=== PATIENT | female | born 1940 | race Caucasian/White ===

== ENCOUNTER 2017-11-22 09:34 | Emergency (ER) | payer MEDICARE ==
[2017-11-22] MEDS ORDERED: methylPREDNISolone Sod Succ/PF 125 MG/2 ML VIAL ONE (10:35)
[2017-11-22] MEDS ORDERED: Water For Inject, Bacteriostat 30 ML ONE (10:35)
--- NOTE | 2017-11-22 12:26 | RAD ---
2 VIEWS LEFT HIP: Date: 11/22/17 COMPARISON: None. HISTORY: Left hip and knee pain which began on Friday, no history of injury. FINDINGS: No fracture or evidence of dislocation. IMPRESSION: No acute findings. POS: BERNY
--- NOTE | 2017-11-22 12:28 | RAD ---
4 VIEWS LEFT KNEE: Date: 11/22/17 COMPARISON: None. HISTORY: Knee pain since Friday, no history of injury. FINDINGS: There is mild medial compartment narrowing with associated osteophyte formation of the medial femoral condyle and medial tibial plateau. No fracture or evidence of dislocation. No knee joint effusion. M ild patellofemoral joint space narrowing. IMPRESSION: Osteoarthritic changes with no acute fracture or dislocation. POS: RASHAUN
== END 2017-11-22 11:59 | disposition home or self-care (01) ==
LOC: ERS 09:34
DX: M25.562 Pain in left knee (principal); M25.552 Pain in left hip; E78.5 Hyperlipidemia, unspecified; I10 Essential (primary) hypertension; M19.90 Unspecified osteoarthritis, unspecified site; Z79.899 Other long term (current) drug therapy
CPT/HCPCS: 96372; J2930

== ENCOUNTER 2018-06-05 15:06 | Outpatient (CLI) | payer MEDICARE | END 2018-06-05 15:07 | disposition home or self-care (01) | LOC: BICMAMMO 15:06 | PROVIDERS: ATTEND Family Medicine | DX: Z12.31 Encounter for screening mammogram for malignant neoplasm of breast (principal) | CPT/HCPCS: 77063; 77067 ==

== ENCOUNTER 2019-09-15 19:52 | Inpatient (IN) | payer MEDICARE ==
[~2019-09-15 19:52] MED LIST: Iopamidol-370 76% 500 ML 1 ML ONE
[2019-09-15 20:22] LABS: #Eosinphils 0.3 thou/uL (0.0-0.7); #Lymphocytes 0.8 thou/uL (1.20-3.40); #Monocytes 0.8 thou/uL (0.11-0.59); #Neutrophils 11.6 thou/uL (1.40-6.50); %Basophils 0.2 % (0.0-1.0); %Eosinophils 1.9 % (0.0-10.0); %Lymphocytes 5.8 % (21.0-51.0); %Monocytes 6.1 % (0.0-10.0); Hemoglobin 10.3 g/dL (12.0-16.0); Mean Corpuscular HGB CONC 33.1 g/dL (32.0-36.0); Mean Corpuscular Hemoglobin 32.9 pg (27.0-31.0); Mean Corpuscular Volume 99.3 fL (78.0-98.0); Mean Platelet Volume 6.1 fL (7.4-10.4); Platelet Count 319 thou/uL (130-400); RBC Distribution Width 13.8 % (11.5-14.5); Red Blood Cell (RBC) Count 3.12 mill/uL (4.20-5.40); White Blood Cell (WBC) Count 13.5 thou/uL (4.8-10.8)
[2019-09-15] MEDS ORDERED: Piperacillin/Tazobactam 4.5 GM VIAL ONE (20:25)
--- NOTE | 2019-09-15 20:32 | RAD ---
PORTABLE AP CHEST X-RAY: 09/15/19 HISTORY: Difficulty breathing. COMPARISON: None. FINDINGS: The cardiac silhouette is enlarged. Pulmonary vasculature does appear borderline increased but likely accentuated due to technique. There is elevation of the left hemidiaphragm. There is increased densi ty at the left lung base probably related to atelectasis. Lungs are otherwise clear. Osseous structur es have a normal appearance. IMPRESSION: 1. Cardiomegaly with pulmonary vasculature at the upper limits of normal. 2. Elevation left hemidiaphragm with mild volume loss left lung base. POS: KRC
[2019-09-15] MEDS ORDERED: Acetaminophen 500 MG TAB ONE (20:35)
[2019-09-15 20:56] LABS: ALT (SGPT) 10 U/L (8-55); AST (SGOT) 17 U/L (5-34); Albumin 3.7 g/dL (3.4-4.8); Alkaline Phosphatase 56 U/L (40-110); Anion Gap 14 mmol/L (10-20); BUN (Urea Nitrogen) 19 mg/dL (9.8-20.1); Bilirubin, Total 0.8 mg/dL (0.2-1.2); Calc. Creatinine Clearance 0 mL/min (70-130); Calcium 8.7 mg/dL (7.8-10.44); Carbon Dioxide 23 mmol/L (23-31); Chloride 104 mmol/L (98-107); Estimated GFR-MDRD 30; Globulin 2.5 g/dL (2.4-3.5); Glucose 136 mg/dL (83-110); Potassium 4.1 mmol/L (3.5-5.1); Protein, Total 6.2 g/dL (6.0-8.3); Sodium 137 mmol/L (136-145)
[2019-09-15 21:09] LABS: CKMB 1.5 ng/mL (0-6.6)
--- NOTE | 2019-09-15 21:45 | CT ---
CTA Angio Chest W WO Con 09/15/2019 8:04 PM Indication: Shortness of breath Technique: Multiple CTA images were obtained of the thorax with IV contrast. 3-D rendering: MIP lb nstructed images were created and reviewed. Comparison: No relevant prior studies available. Findings: Pulmonary arteries: There is enlargement of the main pulmonary arteries likely related to underlying secondary pulmonary artery hypertension. No central pulmonary embolus is evident. Respiratory motion artifact limits evaluation of the segmental pulmonary arteries. Heart and Aorta: Moderate cardiomegaly. There are vascular calcifications involving the thoracic aor ta and coronary arteries. Mediastinum:Normal appearing. No enlarged lymph nodes. Lungs:There are areas of subsegmental volume loss involving both lower lobes, left greater than right . Pleural space: Clear. Upper Abdomen: No acute abnormality. Osseous Structures: No acute osseous abnormality. Soft tissues:No abnormality. Other findings:None. Impression: No central pulmonary embolus demonstrated. Enlargement of the main pulmonary arteries likely related to underlying secondary pulmonary artery hy pertension. Moderate cardiomegaly. Subsegmental volume loss involving the lower lobes, left greater than right.
[2019-09-15 22:39] LABS: Bilirubin Negative (Negative); Blood, Urine Trace (Negative); Clarity Clear (Clear); Glucose, Urine (Dipstick) Normal (Negative); Leukocyte 500 Leu/uL (Negative); Mucous/LPF Rare LPF (<2+); Nitrite Negative (Negative); Protein, Urine (Dipstick) 30 mg/dL (Neg-Trace); Urobilinogen Normal mg/dL (Less than 2); WBC/HPF Greater than 50 HPF (0-3)
[2019-09-15 22:47] LABS: Bacteria/HPF 2+ HPF (None Seen)
[2019-09-15] MEDS ORDERED: Enoxaparin Sodium 100 MG/ML SYRINGE ONE (23:34)
[2019-09-15 23:48] LABS: Troponin I 0.941 ng/mL (< 0.028)
[2019-09-16] MEDS ORDERED: Ondansetron ODT 4 MG TAB SL PRN (00:08)
[2019-09-16] MEDS ORDERED: Acetaminophen 325 MG TAB PO PRN (00:08)
[2019-09-16] MEDS ORDERED: Ondansetron PF 4 MG/2 ML Vial IVP PRN (00:08)
[2019-09-16 00:38] VITALS: BMI 32.4
[2019-09-16] MEDS ORDERED: Aspirin 81 mg Enteric Coated Tablet PO SCH (01:00)
[2019-09-16] MEDS ORDERED: Nitroglycerin 0.4 MG TAB (25 Tab Bottle) PO PRN (01:13)
[2019-09-16] MEDS ORDERED: Temazepam 15 MG CAP PO SCH ×2 (01:45→21:00)
[2019-09-16] MEDS: Sodium Chloride 0.9% 1,000 ML IV SCH ×2 (01:51→17:19)
[2019-09-16] MEDS: cefTRIAXone\\ROCEPHIN 1 GM in Sodium Chloride 0.9% 100 ML IVPB SCH (01:51)
[2019-09-16 02:26] LABS: #Eosinphils 0.1 thou/uL (0.0-0.7); #Lymphocytes 1.1 thou/uL (1.20-3.40); #Monocytes 0.7 thou/uL (0.11-0.59); #Neutrophils 7.5 thou/uL (1.40-6.50); %Basophils 0.1 % (0.0-1.0); %Eosinophils 0.6 % (0.0-10.0); %Lymphocytes 12.1 % (21.0-51.0); %Monocytes 7.2 % (0.0-10.0); Hemoglobin 9.3 g/dL (12.0-16.0); Mean Corpuscular Hemoglobin 32.1 pg (27.0-31.0); Mean Platelet Volume 6.1 fL (7.4-10.4); Platelet Count 275 thou/uL (130-400); RBC Distribution Width 13.8 % (11.5-14.5); Red Blood Cell (RBC) Count 2.89 mill/uL (4.20-5.40); White Blood Cell (WBC) Count 9.4 thou/uL (4.8-10.8)
[2019-09-16 02:59] LABS: ALT (SGPT) 8 U/L (8-55); AST (SGOT) 18 U/L (5-34); Albumin 3.3 g/dL (3.4-4.8); Alkaline Phosphatase 46 U/L (40-110); Anion Gap 13 mmol/L (10-20); BUN (Urea Nitrogen) 15 mg/dL (9.8-20.1); Bilirubin, Total 0.8 mg/dL (0.2-1.2); Calc. Creatinine Clearance 52 mL/min (70-130); Calcium 8.4 mg/dL (7.8-10.44); Carbon Dioxide 21 mmol/L (23-31); Chloride 110 mmol/L (98-107); Estimated GFR-MDRD 38; Globulin 2.5 g/dL (2.4-3.5); Glucose 116 mg/dL (83-110); Protein, Total 5.8 g/dL (6.0-8.3); Sodium 140 mmol/L (136-145)
--- NOTE | 2019-09-16 03:01 | HP ---
CHIEF COMPLAINT: Fever. HISTORY OF PRESENT ILLNESS: This patient is a 79-year-old female who had a right knee replacement surgery at the [facility] by Dr. Lomax two weeks ago. The patient was seen yesterday in followup and had dressings taken down, the compression stockings off and was told everything looked good there. The patient reports that she started experiencing some dyspnea on exertion prior to her surgery. She did notice a bit more when she was up and about with therapy after surgery and that has not significantly changed; however, today the patient reports that she experienced an episode of fevers and chills and that is why, she presented to the emergency department. She denies any other symptoms to suggest any source of infection. Says she has a very mild cough, which actually started more so since she has been here at the hospital. She did have a flu vaccine and a pneumonia vaccine. She denies any ill contacts. REVIEW OF SYSTEMS: She denies any dysuria. She has had mild constipation from pain medications and she has mild chronic allergic rhinitis symptoms. Denies any chest pain. All other systems reviewed, all pertinent positives and negatives noted in history of present illness. PAST MEDICAL HISTORY: Notable for hyperlipidemia, hypertension, osteoarthritis. Atrial fibrillation, the patient reports that she saw Dr. Waldemar Burnham and had a full workup sometime ago. PAST SURGICAL HISTORY: Right total knee replacement, bunionectomy. FAMILY HISTORY: Mother had renal cancer. Father of senescence. SOCIAL HISTORY: Nonsmoker, nondrinker, nondrug user. She is a . She is full code and either her son, Any Gilliam or her daughter would be the surrogate decision makers for her should that be necessary. ALLERGIES: PENICILLIN AND TRAMADOL (THE PATIENT DID RECEIVE A DOSE OF PENICILLIN IN THE EMERGENCY DEPARTMENT, SEEMS TO HAVE DONE OKAY WITH THAT). CURRENT MEDICATIONS: 1. Temazepam 30 mg p.o. at bedtime. 2. Metoprolol 25 mg daily. 3. Fenofibrate 130 mg q.p.m. 4. Norvasc 10 mg daily. 5. Zetia 10 mg daily. 6. Losartan 100 mg daily. 7. Preston 10/325 q.4 hours p.r.n. 8. Eliquis 5 mg p.o. b.i.d. PHYSICAL EXAMINATION: VITAL SIGNS: Temperature is 97.9, pulse 75, respirations 28, O2 saturation 93% on 3 L nasal cannula, BP is 113/51, on T-max in the ER was 101.6. GENERAL APPEARANCE: Age-appropriate female, in no distress. She is awake and alert, pleasant, cooperative, age-appropriate. HEENT: PERRL. No OP lesions. NECK: Supple and symmetric. HEART: Irregular rate without murmurs. LUNGS: Clear to auscultation bilaterally. ABDOMEN: Soft, nontender, and nondistended. Positive bowel sounds. No masses. No organomegaly. EXTREMITIES: No cyanosis, clubbing, or edema. The right knee, the incision looks healthy, there is a bit of right lateral halo of erythema and warmth, which could be appropriate for healing stage of the knee surgery. There is no drainage from the wound. PSYCH: Normal affect and behavior. NEUROLOGIC: The patient moves all extremities spontaneously. She is cognitively intact, has no focal deficits. LABORATORY DATA: White count 13.5, hemoglobin 10.3, platelets 319. Sodium is 137, potassium 4.1, chloride 104, CO2 of 23, BUN 19, creatinine 1.67, GFR is 30, glucose 136, lactic acid 1.5, calcium 8.7, total bilirubin 0.8, AST 17, ALT 10, alkaline phosphatase 56. Troponin 0.227, subsequent 0.941. BNP 218. Albumin is 3.7. TSH 1.59. Urinalysis; specific gravity 1.041, trace protein, trace blood, positive leukocyte esterase, white count greater than 50, red cells 4-6, 2+ bacteria. EKG shows atrial fibrillation with some inferior Q-waves in lead III, but no other ischemic changes. IMPRESSION AND PLAN: 1. Acute hypoxic respiratory failure. The patient was on a non-rebreather with sats documented in the emergency department. I do not see documented hypoxemia. She appears to be comfortable now and she tells me that she did not have a significant increase in her shortness of breath today, but it was the fever that actually brought her here. We will continue with supplemental oxygen and wean as tolerated. She had a negative CT angio of the chest with enlargement of the main pulmonary arteries, likely due to some underlying pulmonary hypertension. There is moderate cardiomegaly and some subsegmental volume loss involving the lower lobes, left greater than right. This suggests she may have some pulmonary hypertension and some potential atelectasis following her knee surgery. We will try to continue with physical therapy to keep her up and moving. 2. Jlv-SW-[id number] myocardial infarction. The patient's troponin has increased from 0.227 to 0.941 consistent with [id number] myocardial infarction. Again, do not have a significant documented hypoxemia to suggest this would be type 2. We will continue to trend. Ask Cardiology to see her and repeat an echocardiogram. May need to get some records from Dr. Burnham tomorrow. 3. Chronic kidney disease stage 3 with acute worsening with a GFR now at 30. We will give some gentle hydration and see how she responds. 4. Fever, appears to be consistent with urinary tract infection, but cannot rule out possible slight wound infection of the right knee either. She has received vancomycin. We will go ahead and give her Rocephin for now. Follow up on urine cultures. 5. Urinary tract infection as above. Rocephin and follow up cultures and hydrates. 6. Possible right knee infection. Unclear that this may be normal healing at this stage. We will need to have the Daytime Team reassess the knee wound and see if she needs to continue with the vancomycin. 7. Atrial fibrillation, chronic. She is on Eliquis, going to hold that. I would keep her on Lovenox for now and just in case, the decision is made that she may need a heart catheterization in light of the [id number] myocardial infarction. 8. Hypertension. Continue metoprolol and amlodipine. Job ID: [id number]
[2019-09-16 03:02] LABS: Troponin I 1.216 ng/mL (< 0.028)
[2019-09-16 06:18] LABS: Critical Call Chem Troponin I RESULT DECREASING
[2019-09-16 06:36] LABS: CKMB 3.3 ng/mL (0-6.6)
[2019-09-16] MEDS: Amlodipine 10 MG TAB PO SCH (08:47)
[2019-09-16] MEDS: Aspirin 81 mg Enteric Coated Tablet PO SCH (08:47)
[2019-09-16] MEDS: Losartan 25 MG TAB PO SCH (08:47)
[2019-09-16] MEDS: Ezetimibe 10 MG TAB PO SCH (08:47)
[2019-09-16] MEDS ORDERED: Metoprolol Tartrate 25 MG TAB PO SCH (09:00)
--- NOTE | 2019-09-16 11:40 | PDOC.HOSPP ---
- Subjective Encounter Date: 09/16/19 Encounter Time: 11:39 Subjective: Ms. Campbell was seen today in follow-up of UTI and elevated troponins. She says she feels better. She had noted some chills yesterday. - Objective Vital Signs & Weight: Vital Signs (12 hours) Temp Pulse Resp BP BP Pulse Ox 09/16/19 11:18 98.3 F 71 17 156/61 H 98 09/16/19 08:47 74 163/72 H 09/16/19 08:00 99.1 F 74 24 H 163/72 H 98 09/16/19 04:00 98.5 F 80 24 H 138/63 97 09/16/19 00:02 97.9 F 75 28 H 113/51 L 97 Weight Weight 213 lb 9.6 oz Result Diagrams: 09/16/19 02:18 09/16/19 02:18 Hospitalist ROS - Medication Medications: Active Medications Generic Name Dose Route Start Last Admin Trade Name Freq PRN Reason Stop Dose Admin Amlodipine Besylate 10 mg 09/16/19 09:00 09/16/19 08:47 Norvasc PO 10 mg DAILY EVI Administration Aspirin 81 mg 09/16/19 09:00 09/16/19 08:47 Ecotrin PO 81 mg DAILY EVI Administration Ezetimibe 10 mg 09/16/19 09:00 09/16/19 08:47 Zetia PO 10 mg DAILY EVI Administration Ceftriaxone Sodium 1 gm/ 100 mls @ 200 mls/hr 09/16/19 02:00 09/16/19 01:51 Sodium Chloride IVPB 100 mls 0200 EVI Administration Sodium Chloride 1,000 mls @ 75 mls/hr 09/16/19 01:45 09/16/19 01:51 Normal Saline 0.9% IV 1,000 mls .[id number] EVI Administration Losartan Potassium 100 mg 09/16/19 09:00 09/16/19 08:47 Cozaar PO 100 mg DAILY EVI Administration - Exam Eye: PERRL Heart: RRR, no murmur, no gallops, no rubs, normal peripheral pulses Respiratory: CTAB, no wheezes, no rales, no ronchi, normal chest expansion, no tachypnea, normal percussion Gastrointestinal: soft, non-distended Extremities: no cyanosis (+ bruising on the left and right lower extremity,) Hosp A/P (1) UTI (urinary tract infection) Status: Acute (2) NSTEMI (non-ST elevated myocardial infarction) Code(s): I21.4 - NON-ST ELEVATION (NSTEMI) MYOCARDIAL INFARCTION Status: Acute (3) Atrial fibrillation Code(s): I48.91 - UNSPECIFIED ATRIAL FIBRILLATION Status: Chronic (4) Hypertension Code(s): I10 - ESSENTIAL (PRIMARY) HYPERTENSION Status: Chronic - Plan * UTI- continue Rocephin for now. Still awaiting urine culture results * NSTEMI- awaiting Cardiology evaluation- agree with adding Metoprolol, continue aspirin * Echo result is pending * AFIB- her heart rate is stable- she is on chronic anticoagulation for this- will place on Lovenox pending Cardiology * HTN- blood pressure is a bit elevated- will observe- and titrate medications as needed
--- NOTE | 2019-09-16 12:52 | CON ---
DATE OF CONSULTATION: PRIMARY CARE DOCTOR: Dr. Antonio Gomez. PRIMARY NUCLEAR MEDICAL TECHNOLOGIST: Dr. Burnham at the [facility] in [place], [place]. PRIMARY DEPARTMENT SECRETARY: Dr. Courtney. The patient's primary professor of astronomy here in [place] is going to be Dr. Daily Brown. REASON FOR CARDIOLOGY CONSULT: Non-STEMI and shortness of breath. HISTORY OF PRESENT ILLNESS: Ms. Campbell is a very present 79-year-old female with significant history of paroxysmal atrial fibrillation, which is managed by Dr. Burnham at [place], [place], hypertension, hyperlipidemia, and status post right knee replacement on August 30, 2019. The patient was believed to be doing well after the patient has status post right knee replacement in August 2019, till yesterday when she started having chillness, worsening of weakness and feeling cold yesterday. Due to this reason, patient decided to present to the emergency department for further evaluation and treatment. At this moment, the patient denies any chills, fever, feeling cold, or any other infection like symptoms. She denies any worsening of pain or discharge from the surgical site. She also complained of chronic shortness of breath for few months in 2018 when she underwent colonoscopy. She was found to have atrial fibrillation with rapid ventricular response in July 2018. Since then, patient has been following up with Dr. Burnham. She has been on Eliquis twice a day, except during the surgery in August 2019. According to patient, patient had echocardiogram and stress test for the surgical clearance prior to the surgery in August 2019. At this moment, the patient denied chest pain, heaviness, tightness, dizziness, lightheadedness, or any other cardiac complaints. MEDICAL HISTORY: Paroxysmal atrial fibrillation with Eliquis July 2018, hypertension, hyperlipidemia, osteoarthritis, and chronic kidney disease, which is managed by Dr. Courtney. PAST SURGICAL HISTORY: Right total knee replacement on August 30, 2019, bunionectomy. FAMILY HISTORY: The patient's mother had a history of renal cancer. The patient's sister has cardiac stent. SOCIAL HISTORY: She is a . She is living in a [facility] community. She denies EtOH, tobacco, or illicit drug abuse. She does not do exercise. She drinks few cups of coffee in the morning. ALLERGIES: SHE IS ALLERGIC TO PENICILLIN AND TRAMADOL. HOME MEDICATION: 1. Temazepam 30 mg at night. 2. Metoprolol 25 mg tartrate. 3. Fenofibrate 130 mg once a day. 4. Amlodipine 10 mg once a day. 5. Zetia 10 mg once a day. 6. Losartan 100 mg once a day. 7. Hydrocodone with Tylenol 10/325, 1 tablet every 4 hours as needed. 8. Eliquis 5 mg twice a day. REVIEW OF SYSTEMS: 12-point review of systems negative unless otherwise mentioned in HPI. She uses a walker at this moment as a temporary due to the status post right total knee replacement on August 30, 2019. PHYSICAL EXAMINATION: VITAL SIGNS: Blood pressure 163/72, temperature 99.1, pulse is 74 and atrial fibrillation, respiratory rate 24, O2 saturation 98% on 3 L nasal cannula. GENERAL: The patient is alert and oriented x4. Nonfocal, in no acute distress. HEENT: Normocephalic, atraumatic. EYES: Extraocular muscle movement intact. ENT: Mouth, oral and nasal mucosa moist without lesion. NECK: Supple. Normal range of motion. No JVD. RESPIRATORY: Clear to auscultate bilaterally. No wheezing, rales, or rhonchi noted. CARDIOVASCULAR: Irregularly irregular. There is no S3 or S4. No significant murmur, hives are noted. EXTREMITIES: 2+ pulses in bilateral upper and lower extremities. No edema in the extremity except swelling to the right knee below with warmness to touch. Carotid pulses are present without bruit. ABDOMEN: Soft, nontender. No mass to palpitate. Bowel sounds are present. MUSCULOSKELETAL: The patient able to move all extremities. The patient denied claudication. SKIN: Warm and dry. No lesion, rash, erythema noted except at the right knees. NEUROLOGIC: The patient is alert and oriented x4, nonfocal. PSYCHIATRIC: The patient's mood is appropriate. LABORATORY DATA: WBC is 9.4, hemoglobin 9.3, hematocrit 29.0, platelets 275. Sodium 140, potassium 4.0, BUN 15, creatinine 1.35, AST 18, ALT 8, CK-MB 3.3. Troponin 0.941, 1.216, 1.116. BNP 218. TSH 1.5995. UA showed patient has infection. Chest x-ray show cardiomegaly with pulmonary phillips in the upper limit of normal. Thoracic CTA show no pulmonary embolism, enlargement of the main pulmonary artery likely related to underlay secondary to pulmonary arterial hypertension. A moderate cardiomegaly. ASSESSMENT AND PLAN: 1. Elevated troponin level, possible secondary to type 2 demand ischemia from status post right knee replacement and/or atrial fibrillation. At this moment, patient is asymptomatic. The patient has been n.p.o. She has been on a beta guzman, aspirin 81 mg once a day. Cardiovascular related medical record is going to be obtained from Dr. Burnham's office. 2. Atrial fibrillation. The patient had a history of atrial fibrillation since 2017. She has been on Eliquis 5 mg twice a day, except during the surgery in August 2019. She has complained of shortness of breath for couple of months, could be secondary to atrial fibrillation. I would like to discuss with Dr. Brown about further treatment of atrial fibrillation. At this moment, the patient's heart rate is well controlled with metoprolol. 3. Chronic shortness of breath for couple months. Again, the symptoms may be caused by atrial fibrillation or cardiomegaly. We will obtain the patient's medical record from Dr. Burnham's office for further treatment plan. 4. Chronic kidney disease with a GFR of 30, which is managed by primary care doctor. 5. Urinary tract infection. The patient has been on Rocephin, which is managed by primary care doctor. 6. Hypertension. We will adjust the patient's blood pressure medications as appropriate. 7. Status post right knee replacement which is managed by primary care. Thank you very much for Cardiology Service to participate in the care of this patient. We will follow along the patient's care team and make further recommendations as appropriate. Job ID: [id number]
[2019-09-16 15:52] LABS: Platelet Count 230 thou/uL (130-400)
[2019-09-16] MEDS ORDERED: Furosemide 20 MG/2 ML VIAL SLOW IVP SCH (16:00)
--- NOTE | 2019-09-16 20:26 | CON ---
DATE OF CONSULTATION: 09/16/2019 INDICATION FOR CONSULTATION: A 79-year-old female, who presented with shortness of breath. HISTORY OF PRESENT ILLNESS: This is a very pleasant 79-year-old female, who recently underwent a right knee replacement at [facility] about 2 weeks ago. She has also had some shortness of breath prior to undergoing the procedure, then continued to have some shortness of breath, which worsened over the last few days and she was advised to be seen in the emergency room and then was admitted to the hospital. She also has been complaining of some fevers and chills, and apparently now has been diagnosed with urinary tract infection. This appears to be a mild UTI with just 2+ bacteria. There has been no growth noted on the cultures as of yet. She denies any chest pain. She has been followed by Dr. Burnham in [facility] for several years. She last saw him for a complete workup about almost a year ago back in August of 2018, at which time she had an echocardiogram. She had a stress test, which was unremarkable for any evidence of ischemia. The echocardiogram showed a normal ejection fraction. She also has some mild mitral and tricuspid valve regurgitation. She does have chronic atrial fibrillation. At this time, her cardiac enzymes are slightly elevated, which are most likely indeterminate. This may be due to the underlying UTI with fevers and chills and also with her atrial fibrillation. Her EKG has remained unchanged since EKG from last year that was sent over from Dr. Burnham's office and does not show any evidence of ischemia. She has some nonspecific changes with decreased R-wave progression in the anterior leads, but this has also been present. There are no acute changes noted. Her CPK was 3.3, but the peak troponin I on admission was 0.94, increased up to 1.2 and then decreased down to 1.1. She denies chest pain and shortness of breath is within normal limits as long as she is not exercising or exerting herself. Her BNP was 218, which is only slightly above but would be consider normal. She did undergo a CT angiogram of the chest, which did not show any evidence of a pulmonary embolus. PAST MEDICAL HISTORY: Significant for mild renal insufficiency. She has had cataract surgery. She has had right knee replacement. She has had a bunion removed. FAMILY HISTORY: Unremarkable for any early heart disease. Her mother of renal cancer. REVIEW OF SYSTEMS: She complains of decreased hearing. She has a hearing aid. She wears glasses. Otherwise, her review of systems is unremarkable except for what was noted in the history of present illness with her shortness of breath. MEDICATIONS: Prior to admission included: 1. Metoprolol 25 mg b.i.d. 2. Fenofibrate 130 mg daily. 3. Amlodipine 10 mg a day. 4. Ezetimibe 10 mg a day. 5. Losartan 100 mg a day. 6. P.r.n. hydrocodone. 7. She also takes Eliquis 5 mg b.i.d. and temazepam when she was seen in the emergency room. SOCIAL HISTORY: There is no history of alcohol or tobacco abuse. She is a . She has children, who are alive and well. She lives alone. ALLERGIES: SHE SAID SHE IS ALLERGIC TO TRAMADOL AND PENICILLIN. PHYSICAL EXAMINATION: GENERAL: Reveals a well-developed, well-nourished female, who is in no acute distress at this time. She is alert. She is oriented. VITAL SIGNS: Show a blood pressure of 141/67, repeated was 152/67, heart rates in the 70s and shows atrial fibrillation. She is afebrile. Respiratory rate is 17 to 24. HEENT: Shows the head to be normocephalic and atraumatic. Carotid pulses are present. I cannot hear any bruits. CHEST: Actually shows some minimal left basilar rales. I do not hear any other rales, rhonchi or wheezing. CARDIOVASCULAR: Reveals irregular rhythm. She has a very soft systolic murmur at the upper sternal border. There were no other heaves, thrills, bruits, or rubs noted. ABDOMEN: Shows obesity with positive bowel sounds. EXTREMITIES: Shows no clubbing or cyanosis. There is evidence of a recent right knee replacement. She does have some edema of the right lower extremity. Pulses are present. The left lower extremity has some ecchymosis noted from a previous bruise she has had, which occurred during the surgical time, but otherwise no significant abnormalities were noted. NEUROLOGICAL: She appears to be fully intact. SKIN: Warm and dry. DIAGNOSTIC STUDIES: Her EKG shows an atrial fibrillation with a well-controlled ventricular response. There is some nonspecific changes, which would indicate decreased R-wave progression in the anterior leads, but this is not changed from an old EKG about a year ago. She does have a Q-wave in lead 3, which is not indicative of myocardial infarction in and of itself. LABORATORY DATA: Troponin as noted above. Her sodium was 140, potassium was 4.0, BUN was 15 with a creatinine of 1.35, and blood sugar was 116. Her WBC was 9.4, on admission was 13.5, and hemoglobin was 9.3. Her platelet count was 275,000. IMPRESSION: A 79-year-old female with shortness of breath, which may be due to some mild volume overload. Her ejection fraction is normal. She does have mild mitral and tricuspid valve regurgitation. Also, she had a repeat echocardiogram today which shows normal ejection fraction, but appears to be probable diastolic dysfunction which is difficult to diagnose in the face of her atrial fibrillation. I would advise just mild diuretics to see if she improves with shortness of breath and also the fact that she did have some mild basilar rales. 1. Atrial fibrillation, which is chronic in nature. Would resume her Eliquis as soon as possible and would stop the Lovenox. 2. Abnormal cardiac enzymes, which may be due to the urinary tract infection associated with atrial fibrillation and fever. She denies any chest pain. There were no acute changes noted on EKG. She had a stress test a year ago, which was unremarkable. We could consider repeating the stress test as an outpatient once her shortness of breath has improved. Most likely, this will improve after she has been given some diuretics and I suspect this is due to her diastolic dysfunction as well as her UTI and possible volume overload. 3. Urinary tract infection, which is being treated by the primary care service with antibiotics. 4. Hypercholesterolemia. She will continue on the fenofibrate, as well as Zetia. 5. Chronic kidney disease. She is followed by a transmitter chief and this appears to be stable at this time. I will certainly give her low-dose of diuretics. We will continue to monitor the renal function. She can follow up with her primary care physician or with a transmitter chief in the near future. 6. Hypertension. She appears to be relatively stable in the present medications. Would not change these medications except for the addition of a mild diuretic. Most likely, we will start her on furosemide 20 mg once a day. If she has no shortness of breath or any edema, then most likely can stop this medication, just take it on a p.r.n. basis. Job ID: [id number]
[2019-09-16] MEDS ORDERED: Fenofibrate Nanocrystallized 145 MG TAB PO SCH (21:00)
[2019-09-16] MEDS ORDERED: Enoxaparin Sodium 100 MG/ML SYRINGE SC SCH (21:00)
[2019-09-16] MEDS: HYDROcodone/Acetaminophen 10/325 mg Tablet PO PRN (21:11)
[2019-09-16] MEDS: Metoprolol Tartrate 25 MG TAB PO SCH (21:11)
[2019-09-17] MEDS: cefTRIAXone\\ROCEPHIN 1 GM in Sodium Chloride 0.9% 100 ML IVPB SCH (03:01)
[2019-09-17] MEDS: HYDROcodone/Acetaminophen 10/325 mg Tablet PO PRN (05:41)
[2019-09-17] MEDS: Sodium Chloride 0.9% 1,000 ML IV SCH (06:02)
--- NOTE | 2019-09-17 08:50 | PDOC.CPN ---
- Subjective Date: 09/17/19 Time: 08:30 - Objective Allergies/Adverse Reactions: Allergies Allergy/AdvReac Type Severity Reaction Status Date / Time Penicillins Allergy Verified 09/16/19 00:08 tramadol Allergy Verified 09/16/19 00:08 Visit Medications: Current Medications Hydrocodone Bitart/Acetaminophen ([place] 10/325) 1 tab PO Q4H PRN PRN Reason: Moderate Pain (4-6) Last Admin: 09/17/19 05:41 Dose: 1 tab Amlodipine Besylate (Norvasc) 10 mg PO DAILY [facility] Last Admin: 09/16/19 08:47 Dose: 10 mg Apixaban (Eliquis) 5 mg PO BID [facility] Aspirin (Ecotrin) 81 mg PO DAILY [facility] Last Admin: 09/16/19 08:47 Dose: 81 mg Ezetimibe (Zetia) 10 mg PO DAILY [facility] Last Admin: 09/16/19 08:47 Dose: 10 mg Fenofibrate (Tricor) 145 mg PO QPM [facility] Last Admin: 09/16/19 21:16 Dose: 145 mg Furosemide (Lasix) 20 mg PO DAILY [facility] Stop: 09/17/19 23:59 Furosemide (Lasix) 20 mg PO PRN PRN PRN Reason: SOB &/or Wheezing Ceftriaxone Sodium 1 gm/ (Sodium Chloride) 100 mls @ 200 mls/hr IVPB 0200 [facility] Last Admin: 09/17/19 03:01 Dose: 100 mls Losartan Potassium (Cozaar) 100 mg PO DAILY [facility] Last Admin: 09/16/19 08:47 Dose: 100 mg Metoprolol Tartrate (Lopressor) 25 mg PO BID [facility] Last Admin: 09/16/19 21:11 Dose: 25 mg Nitroglycerin (Nitrostat) 0.4 mg PO Q5MIN PRN PRN Reason: Chest Pain Sodium Chloride (Flush - Normal Saline) 10 ml IVF Q12HR [facility] Last Admin: 09/16/19 21:17 Dose: 10 ml Sodium Chloride (Flush - Normal Saline) 10 ml IVF PRN PRN PRN Reason: Saline Flush Temazepam (Restoril) 30 mg PO HS [facility] Last Admin: 09/16/19 21:10 Dose: 30 mg Vital Signs & Weight: Vital Signs Temp Pulse Resp BP BP Pulse Ox 09/17/19 07:40 98.0 F 69 20 150/65 H 94 L 02/14/20 03:44 98.0 F 71 18 142/64 H 95 Weight 210 lb 9.6 oz - Physical Exam General: alert & oriented x3 Neck: supple neck Cardiac: irregularly regular Lungs: clear to auscultation Neuro: cranial nerve 2-12 intact Extremities: other: (mildly swelling and erythma to RLE) - Labs Result Diagrams: 09/16/19 15:43 09/16/19 15:43 Troponin/CKMB CK-MB (CK-2) 3.3 ng/mL (0-6.6) 09/16/19 05:29 Troponin I 1.116 ng/mL (< 0.028) H* 09/16/19 05:29 - Telemetry Supraventricular conduction: atrial fibrillation - Assessment/Plan Assessment/Plan: 1. Type 2 NSTEMI 2/2 Afib/UTI/sp Rt knee replacement? - stable; on Metoprolol, ASA; recommend Stress test as outpt setting 2. Chronic Afib - well controlled HR; on Eliquis and Metoprolol; 3. UTI - on ABX 4. HTN 5. CKD - the pt f/u with Dr Roz [place] reviewed * Echo on 09/16/2019 with EF 60-65%, grade I dd, mod LAE and MANDO, trace MR, mild TR and ID * From Cardiac standpoint, the pt is stable to d/c home when she can exercise without BAKER. * The pt will f/u with Dr Burnham' office in 2 wks with Stress test. D/c home with Lasix 20mg PO PRN Pt. seen and eval. by me. I agree withthe A/P by the RESEARCH ASST. She is stable from a cariac standpoint for d/c. Chest clear. Irreg/irreg. rate controlled.
[2019-09-17] MEDS ORDERED: Furosemide 20 MG TAB PO SCH (09:00)
[2019-09-17] MEDS: Losartan 25 MG TAB PO SCH (09:54)
[2019-09-17] MEDS: Metoprolol Tartrate 25 MG TAB PO SCH (09:55)
[2019-09-17] MEDS: Amlodipine 10 MG TAB PO SCH (09:55)
[2019-09-17] MEDS: Ezetimibe 10 MG TAB PO SCH (09:55)
[2019-09-17] MEDS: Aspirin 81 mg Enteric Coated Tablet PO SCH (09:55)
[2019-09-17] MEDS ORDERED: Apixaban 5 MG TAB PO SCH ×2 (11:30→21:00)
--- NOTE | 2019-09-17 11:49 | PDOC.HOSPP ---
- Subjective Encounter Date: 09/17/19 Encounter Time: 11:47 Subjective: Ms. Campbell was seen today in follow-up of UTI and dyspnea. She is feeling much better. - Objective Vital Signs & Weight: Vital Signs (12 hours) Temp Pulse Resp BP BP Pulse Ox 09/17/19 07:40 98.0 F 69 20 150/65 H 94 L 09/17/19 03:44 98.0 F 71 18 142/64 H 95 Weight Weight 210 lb 9.6 oz I&O: 09/16/19 09/17/19 09/18/19 06:59 06:59 06:59 Intake Total 2290 Output Total 800 Balance 1490 Result Diagrams: 09/16/19 15:43 09/16/19 15:43 Hospitalist ROS - Medication Medications: Active Medications Generic Name Dose Route Start Last Admin Trade Name Freq PRN Reason Stop Dose Admin Hydrocodone Bitart/Acetaminophen 1 tab 09/16/19 01:11 09/17/19 05:41 [place] 10/325 PO 1 tab Q4H PRN Administration Moderate Pain (4-6) Amlodipine Besylate 10 mg 09/16/19 09:00 09/17/19 09:55 Norvasc PO 10 mg DAILY EVI Administration Apixaban 5 mg 09/17/19 11:30 09/17/19 11:46 Eliquis PO 09/17/19 13:00 5 mg 1130 EVI Administration Aspirin 81 mg 09/16/19 09:00 09/17/19 09:55 Ecotrin PO Not Given DAILY EVI Ezetimibe 10 mg 09/16/19 09:00 09/17/19 09:55 Zetia PO 10 mg DAILY EVI Administration Fenofibrate 145 mg 09/16/19 21:00 09/16/19 21:16 Tricor PO 145 mg QPM EVI Administration Furosemide 20 mg 09/17/19 09:00 09/17/19 09:55 Lasix PO 09/17/19 23:59 20 mg DAILY EVI Administration Ceftriaxone Sodium 1 gm/ 100 mls @ 200 mls/hr 09/16/19 02:00 09/17/19 03:01 Sodium Chloride IVPB 100 mls 0200 EVI Administration Losartan Potassium 100 mg 09/16/19 09:00 09/17/19 09:54 Cozaar PO 100 mg DAILY EVI Administration Metoprolol Tartrate 25 mg 09/16/19 21:00 09/17/19 09:55 Lopressor PO 25 mg BID EVI Administration Sodium Chloride 10 ml 09/16/19 21:00 09/17/19 09:57 Flush - Normal Saline IVF 10 ml Q12HR EVI Administration Temazepam 30 mg 09/16/19 21:00 09/16/19 21:10 Restoril PO 30 mg HS EVI Administration - Exam Eye: PERRL, anicteric sclera Heart: RRR, no murmur, no gallops, no rubs, normal peripheral pulses Respiratory: CTAB, no wheezes, no rales, no ronchi, normal chest expansion, no tachypnea, normal percussion Gastrointestinal: soft, non-tender, non-distended, normal bowel sounds, no palpable masses, no hepatomegaly Extremities: no cyanosis, no edema Hosp A/P (1) UTI (urinary tract infection) Status: Acute (2) NSTEMI (non-ST elevated myocardial infarction) Code(s): I21.4 - NON-ST ELEVATION (NSTEMI) MYOCARDIAL INFARCTION Status: Acute (3) Atrial fibrillation Code(s): I48.91 - UNSPECIFIED ATRIAL FIBRILLATION Status: Chronic (4) Hypertension Code(s): I10 - ESSENTIAL (PRIMARY) HYPERTENSION Status: Chronic - Plan * UTI- with change her to oral antibiotics * NSTEMI-type 2- Cardiology recommendations noted * She is stable for discharge home
[2019-09-17 12:13] VITALS: BP 137/67; TEMP 97.4
--- NOTE | 2019-09-17 14:44 | DIS ---
DATE OF ADMISSION: 09/16/2019 DATE OF DISCHARGE: 09/17/2019 DISCHARGE DISPOSITION: Home. DISCHARGE DIAGNOSES: 1. Acute respiratory failure. 2. Urinary tract infection. 3. Non-ST elevation myocardial infarction, type 2. 4. Acute on chronic diastolic heart failure. 5. Chronic atrial fibrillation or permanent atrial fibrillation, on anticoagulation. 6. Hypertension. 7. Osteoarthritis. 8. Dyslipidemia. DISCHARGE MEDICATIONS: Include; 1. Lasix 20 mg one p.o. daily only as needed for volume overload. 2. Omnicef 300 mg p.o. twice a day. 3. Temazepam 30 mg at bedtime. 4. Metoprolol 25 mg twice daily. 5. Losartan 100 mg daily. 6. [place] 10/325 q.4 hours as needed. 7. Fenofibrate 130 mg daily. 8. Zetia 10 mg daily. 9. Eliquis 5 mg twice a day. 10. Norvasc 10 mg daily. 11. Alprazolam 0.25 mg twice daily. IMAGING DURING HOSPITAL STAY: The patient had a CT angiogram of the chest, which was negative for pulmonary embolism. 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 The patient also had an echocardiogram and the main findings of which demonstrated an ejection fraction estimated at 60% to 65%. There was probable diastolic dysfunction. There was moderate enlargement of the right atrium and mild mitral regurgitation, tricuspid and pulmonic regurgitation. CODE STATUS: Full code. ALLERGIES: TO PENICILLIN AND TRAMADOL. HOSPITAL COURSE: Ms. Campbell is a very pleasant 79-year-old female, who presented to the emergency room complaining of fever and chills. She also noted some dyspnea as well. She had a recent right total knee replacement and as such, there was immediate concern for pulmonary embolism. She had a CT angiogram of the chest, which was negative. However, she was brought into the hospital due to concerns for urinary tract infection and elevated troponin. She was started on Rocephin as well as some moderate IV fluids. The following day, she was feeling much better and was actually asking to go home. However, we did keep her one additional day to be evaluated by Cardiology. She was seen by Dr. Brown, who felt that the elevated troponin was unlikely due to a cardiac event and thought it was demand ischemia from the urinary tract infection as well as some mild volume overload from diastolic dysfunction. She was given a dose of Lasix with improvement in her symptoms. She normally sees Dr. Burnham as her regular prop maker and states that she had recent cardiac evaluation. Therefore, she will be discharged home today to have close outpatient followup once she is recovered from the urinary tract infection. The patient is being discharged today on 09/17/2019 for close outpatient followup. Job ID: [id number]
[2019-09-18] MEDS ORDERED: Furosemide 20 MG TAB PO PRN (09:00)
== END 2019-09-17 14:00 | disposition home or self-care (01) | DRG 280 ==
LOC: ERS 19:52 → 2NO 09-16 00:02
PROVIDERS: ADMIT Internal Medicine; ATTEND Internal Medicine
DX: I13.0 Hypertensive heart and chronic kidney disease with heart failure and stage 1 through stage 4 chronic kidney disease, or unspecified chronic kidney disease (principal); I21.A1 Myocardial infarction type 2; J96.01 Acute respiratory failure with hypoxia; I50.33 Acute on chronic diastolic (congestive) heart failure; N39.0 Urinary tract infection, site not specified; I48.20 Chronic atrial fibrillation, unspecified; I48.21 Permanent atrial fibrillation; I27.20 Pulmonary hypertension, unspecified; N18.3 Chronic kidney disease, stage 3 (moderate); M19.90 Unspecified osteoarthritis, unspecified site; E78.5 Hyperlipidemia, unspecified; Z96.651 Presence of right artificial knee joint; E78.00 Pure hypercholesterolemia, unspecified; Z79.01 Long term (current) use of anticoagulants; Z88.6 Allergy status to analgesic agent; Z88.0 Allergy status to penicillin
CPT/HCPCS: 36415; 36416; 71045; 71275; 80053; 81003; 81015; 82553; 83605; 83880; 84443; 84484; 85025; 87040; 87086; 87804; 93005; 93306; 94760; J0696; J1650; J1940; J2543; J3370; J3490; Q9967

== ENCOUNTER 2020-01-03 | Outpatient (CLI) | payer MEDICARE | END 2020-01-03 12:57 | disposition home or self-care (01) | DX: N18.3 Chronic kidney disease, stage 3 (moderate) (principal) ==

== ENCOUNTER 2021-07-31 09:18 | Emergency (ER) | payer MEDICARE, OTHER ==
[2021-07-31 10:20] LABS: #Eosinphils 0.1 thou/uL (0.0-0.7); #Lymphocytes 1.1 thou/uL (1.20-3.40); #Monocytes 0.4 thou/uL (0.11-0.59); #Neutrophils 2.5 thou/uL (1.40-6.50); %Basophils 0.2 % (0.0-1.0); %Eosinophils 2.8 % (0.0-10.0); %Lymphocytes 26.2 % (21.0-51.0); %Monocytes 9.4 % (0.0-10.0); %Neutrophils 61.3 % (42.0-75.0); Hemoglobin 13.5 g/dL (12.0-16.0); Mean Corpuscular HGB CONC 33.4 g/dL (32.0-36.0); Mean Corpuscular Hemoglobin 32.6 pg (27.0-31.0); Mean Corpuscular Volume 97.6 fL (78.0-98.0); Mean Platelet Volume 7.1 fL (7.4-10.4); Platelet Count 198 thou/uL (130-400); RBC Distribution Width 11.5 % (11.5-14.5); Red Blood Cell (RBC) Count 4.14 mill/uL (4.20-5.40); White Blood Cell (WBC) Count 4.1 thou/uL (4.8-10.8)
[2021-07-31 10:44] LABS: ALT (SGPT) 13 U/L (8-55); AST (SGOT) 24 U/L (5-34); Albumin 3.8 g/dL (3.4-4.8); Alkaline Phosphatase 51 U/L (40-110); Anion Gap 13 mmol/L (10-20); BUN (Urea Nitrogen) 29 mg/dL (9.8-20.1); Bilirubin, Total 0.5 mg/dL (0.2-1.2); Calc. Creatinine Clearance 0 mL/min (70-130); Calcium 9.6 mg/dL (7.8-10.44); Carbon Dioxide 27 mmol/L (23-31); Chloride 102 mmol/L (98-107); Globulin 2.8 g/dL (2.4-3.5); Glucose 101 mg/dL (83-110); Potassium 4.5 mmol/L (3.5-5.1); Protein, Total 6.6 g/dL (5.8-8.1); Sodium 137 mmol/L (136-145)
[2021-07-31] MEDS ORDERED: PROVENTIL INHALER 6.7 G (200 INHALATIONS) ONE (11:50)
[2021-07-31] MEDS ORDERED: Albuterol 200 PUFF (6.7GM INHALER) ONE (11:51)
[2021-07-31 13:32] LABS: Bacteria/HPF None Seen HPF (None Seen); Bilirubin Negative (Negative); Blood, Urine Negative (Negative); Clarity Clear (Clear); Glucose, Urine (Dipstick) Normal (Negative); Ketone, Urine Negative (Negative); Leukocyte 25 Leu/uL (Negative); Nitrite Negative (Negative); Protein, Urine (Dipstick) Negative (Neg-Trace); RBC/HPF 0-3 HPF (0-3); Specific Gravity, Urine 1.012 (1.002-1.036); Squamous Epithelial 0-3 HPF (0-3); Urobilinogen Normal mg/dL (Less than 2); WBC/HPF 0-3 HPF (0-3); pH, Urine 5.5 (5.0-9.0)
== END 2021-07-31 14:47 | disposition home or self-care (01) ==
LOC: ERS 09:18
DX: J12.9 Viral pneumonia, unspecified (principal); N17.9 Acute kidney failure, unspecified; E86.0 Dehydration; I10 Essential (primary) hypertension; E78.5 Hyperlipidemia, unspecified
CPT/HCPCS: 36415; 71045; 80053; 81003; 81015; 85025

== ENCOUNTER 2021-09-10 12:41 | Outpatient (CLI) | payer MEDICARE | END 2021-09-10 12:42 | disposition home or self-care (01) | LOC: CT 12:41 | PROVIDERS: ATTEND Family Medicine | DX: R51.9 Headache, unspecified (principal) | CPT/HCPCS: 70450 ==

== ENCOUNTER 2022-03-09 15:15 | Emergency (ER) | payer MEDICARE ==
[2022-03-09 16:34] LABS: #Eosinphils 0.2 thou/uL (0.0-0.7); #Lymphocytes 1.3 thou/uL (1.20-3.40); #Monocytes 0.5 thou/uL (0.11-0.59); %Basophils 0.3 % (0.0-1.0); %Eosinophils 4.6 % (0.0-10.0); %Lymphocytes 25.9 % (21.0-51.0); %Monocytes 9.7 % (0.0-10.0); %Neutrophils 59.5 % (42.0-75.0); Hemoglobin 12.4 g/dL (12.0-16.0); Mean Corpuscular HGB CONC 33.6 g/dL (32.0-36.0); Mean Corpuscular Hemoglobin 33.6 pg (27.0-31.0); Mean Platelet Volume 7.5 fL (7.4-10.4); Platelet Count 167 thou/uL (130-400); RBC Distribution Width 12.4 % (11.5-14.5); Red Blood Cell (RBC) Count 3.68 mill/uL (4.20-5.40); White Blood Cell (WBC) Count 5.1 thou/uL (4.8-10.8)
[2022-03-09 16:52] LABS: Bilirubin Negative (Negative); Blood, Urine Negative (Negative); Clarity Clear (Clear); Glucose, Urine (Dipstick) Normal (Negative); Ketone, Urine Negative (Negative); Leukocyte Negative Leu/uL (Negative); Nitrite Negative (Negative); Protein, Urine (Dipstick) Negative (Neg-Trace); Specific Gravity, Urine 1.011 (1.002-1.036); Urobilinogen Normal mg/dL (Less than 2)
[2022-03-09 16:55] LABS: ALT (SGPT) 10 U/L (8-55); AST (SGOT) 23 U/L (5-34); Albumin 3.8 g/dL (3.4-4.8); Alkaline Phosphatase 45 U/L (40-110); Anion Gap 12 mmol/L (10-20); BUN (Urea Nitrogen) 24 mg/dL (9.8-20.1); Bilirubin, Total 0.4 mg/dL (0.2-1.2); Calc. Creatinine Clearance 0 mL/min (70-130); Calcium 9.3 mg/dL (7.8-10.44); Carbon Dioxide 24 mmol/L (23-31); Chloride 107 mmol/L (98-107); Estimated GFR 41; Globulin 2.9 g/dL (2.4-3.5); Glucose 90 mg/dL (83-110); Potassium 4.5 mmol/L (3.5-5.1); Protein, Total 6.7 g/dL (5.8-8.1); Sodium 138 mmol/L (136-145)
[2022-03-09] MEDS ORDERED: Meclizine HCl 25 MG TAB ONE (17:21)
== END 2022-03-09 20:38 | disposition home or self-care (01) ==
LOC: ERS 15:15
DX: H93.19 Tinnitus, unspecified ear (principal); R42 Dizziness and giddiness; R51.9 Headache, unspecified; E78.5 Hyperlipidemia, unspecified; I10 Essential (primary) hypertension
CPT/HCPCS: 70450; 71045; 80053; 81003; 84484; 85025; 93005

== ENCOUNTER 2022-04-08 05:33 | Emergency (ER) | payer MEDICARE ==
[2022-04-08] MEDS ORDERED: Dicyclomine 20 MG/2 ML VIAL ONE (06:02)
[2022-04-08] MEDS ORDERED: Ondansetron PF 4 MG/2 ML Vial ONE (06:02)
[2022-04-08 06:39] LABS: #Eosinphils 0.1 thou/uL (0.0-0.7); #Lymphocytes 0.9 thou/uL (1.20-3.40); #Monocytes 0.4 thou/uL (0.11-0.59); #Neutrophils 2.6 thou/uL (1.40-6.50); %Basophils 0.4 % (0.0-1.0); %Eosinophils 2.9 % (0.0-10.0); %Lymphocytes 22.5 % (21.0-51.0); %Monocytes 9.1 % (0.0-10.0); %Neutrophils 65.1 % (42.0-75.0); Hemoglobin 12.6 g/dL (12.0-16.0); Mean Corpuscular HGB CONC 33.6 g/dL (32.0-36.0); Mean Corpuscular Hemoglobin 33.7 pg (27.0-31.0); Mean Platelet Volume 7.2 fL (7.4-10.4); Platelet Count 177 thou/uL (130-400); RBC Distribution Width 12.2 % (11.5-14.5); Red Blood Cell (RBC) Count 3.74 mill/uL (4.20-5.40)
[2022-04-08 06:42] LABS: Bacteria/HPF None Seen HPF (None Seen); Bilirubin Negative (Negative); Blood, Urine Negative (Negative); Clarity Clear (Clear); Glucose, Urine (Dipstick) Normal (Negative); Ketone, Urine Negative (Negative); Leukocyte 75 Leu/uL (Negative); Nitrite Negative (Negative); Protein, Urine (Dipstick) 10 mg/dL (Neg-Trace); RBC/HPF 0-3 HPF (0-3); Specific Gravity, Urine 1.021 (1.002-1.036); Urobilinogen Normal mg/dL (Less than 2)
[2022-04-08 07:01] LABS: ALT (SGPT) 13 U/L (8-55); AST (SGOT) 21 U/L (5-34); Albumin 3.9 g/dL (3.4-4.8); Alkaline Phosphatase 44 U/L (40-110); Anion Gap 17 mmol/L (10-20); BUN (Urea Nitrogen) 15 mg/dL (9.8-20.1); Bilirubin, Total 0.5 mg/dL (0.2-1.2); Calc. Creatinine Clearance 0 mL/min (70-130); Calcium 9.3 mg/dL (7.8-10.44); Carbon Dioxide 21 mmol/L (23-31); Chloride 107 mmol/L (98-107); Estimated GFR 45; Globulin 2.8 g/dL (2.4-3.5); Glucose 114 mg/dL (83-110); Lipase 36 U/L (8-78); Protein, Total 6.7 g/dL (5.8-8.1); Sodium 141 mmol/L (136-145)
[2022-04-08] MEDS ORDERED: Iopamidol-370 76% 500 ML 1 ML ONE (08:58)
== END 2022-04-08 09:10 | disposition home or self-care (01) ==
LOC: ERS 05:33
DX: K80.20 Calculus of gallbladder without cholecystitis without obstruction (principal); N39.0 Urinary tract infection, site not specified; E78.5 Hyperlipidemia, unspecified; I10 Essential (primary) hypertension
CPT/HCPCS: 36415; 74177; 80053; 81003; 81015; 83690; 85025; 96372; 96374; J2405; Q9967

== ENCOUNTER 2022-04-11 13:57 | Inpatient (IN) | payer MEDICARE ==
[2022-04-11 15:39] LABS: #Lymphocytes 0.8 thou/uL (1.20-3.40); #Monocytes 0.8 thou/uL (0.11-0.59); #Neutrophils 6.9 thou/uL (1.40-6.50); %Basophils 0.3 % (0.0-1.0); %Eosinophils 0.4 % (0.0-10.0); %Lymphocytes 9.5 % (21.0-51.0); %Monocytes 9.6 % (0.0-10.0); %Neutrophils 80.2 % (42.0-75.0); Hemoglobin 12.8 g/dL (12.0-16.0); Mean Corpuscular Hemoglobin 32.8 pg (27.0-31.0); Mean Corpuscular Volume 99.4 fL (78.0-98.0); Mean Platelet Volume 7.4 fL (7.4-10.4); Platelet Count 207 thou/uL (130-400); RBC Distribution Width 12.3 % (11.5-14.5); White Blood Cell (WBC) Count 8.5 thou/uL (4.8-10.8)
[2022-04-11 16:01] LABS: Anion Gap 19 mmol/L (10-20); BUN (Urea Nitrogen) 26 mg/dL (9.8-20.1); Calc. Creatinine Clearance 0 mL/min (70-130); Carbon Dioxide 19 mmol/L (23-31); Chloride 106 mmol/L (98-107); Sodium 140 mmol/L (136-145)
[2022-04-11 16:02] LABS: ALT (SGPT) 18 U/L (8-55); AST (SGOT) 30 U/L (5-34); Albumin 4.2 g/dL (3.4-4.8); Alkaline Phosphatase 50 U/L (40-110); Bilirubin, Total 0.5 mg/dL (0.2-1.2); Calcium 9.5 mg/dL (7.8-10.44); Estimated GFR 31; Glucose 100 mg/dL (83-110); Lipase 44 U/L (8-78); Magnesium 1.8 mg/dL (1.6-2.6); Protein, Total 7.2 g/dL (5.8-8.1)
[2022-04-11] MEDS ORDERED: cefTRIAXone\\ROCEPHIN 1 GM VIAL ONE (16:41)
[2022-04-11 17:40] LABS: Bilirubin Negative (Negative); Blood, Urine Negative (Negative); Clarity Clear (Clear); Glucose, Urine (Dipstick) Normal (Negative); Ketone, Urine Trace mg/dL (Negative); Leukocyte Negative Leu/uL (Negative); Nitrite Negative (Negative); Protein, Urine (Dipstick) 10 mg/dL (Neg-Trace); Specific Gravity, Urine 1.019 (1.002-1.036); Urobilinogen Normal mg/dL (Less than 2); pH, Urine 5.5 (5.0-9.0)
[2022-04-11] MEDS ORDERED: Senokot S 8.6-50 MG TAB PO PRN (18:00)
[2022-04-11] MEDS ORDERED: Ondansetron ODT 4 MG TAB PO PRN (18:00)
[2022-04-11] MEDS ORDERED: hydrALAZINE 20 MG/ML VIAL SLOW IVP PRN (18:00)
[2022-04-11] MEDS ORDERED: Ondansetron PF 4 MG/2 ML Vial IVP PRN (18:00)
[2022-04-11] MEDS ORDERED: Acetaminophen 325 MG TAB PO PRN (18:00)
[2022-04-11] MEDS ORDERED: Levofloxacin 750 mg/D5W 500 MG in Premix Bag 1 BAG IVPB SCH (19:00)
[2022-04-11] MEDS: Metoprolol Tartrate 25 MG TAB PO SCH (21:25)
[2022-04-11] MEDS: ALPRAZolam 0.25 MG TAB PO SCH (21:25)
[2022-04-11] MEDS: Apixaban 5 MG TAB PO SCH (21:25)
[2022-04-11] MEDS: Fenofibrate Nanocrystallized 145 MG TAB PO SCH (21:25)
[2022-04-11] MEDS: Temazepam 15 MG CAP PO SCH (21:25)
[2022-04-11] MEDS: Atorvastatin Calcium 40 MG TAB PO SCH (21:25)
[2022-04-11] MEDS: Sodium Chloride 0.9% 1,000 ML IV SCH (21:26)
[2022-04-11 23:58] VITALS: BMI 28.5
[2022-04-12 05:14] LABS: #Eosinphils 0.2 thou/uL (0.0-0.7); #Lymphocytes 0.8 thou/uL (1.20-3.40); #Monocytes 0.7 thou/uL (0.11-0.59); #Neutrophils 3.7 thou/uL (1.40-6.50); %Basophils 0.5 % (0.0-1.0); %Eosinophils 3.3 % (0.0-10.0); %Lymphocytes 14.2 % (21.0-51.0); %Monocytes 13.2 % (0.0-10.0); %Neutrophils 68.8 % (42.0-75.0); Hemoglobin 11.7 g/dL (12.0-16.0); Mean Corpuscular HGB CONC 33.7 g/dL (32.0-36.0); Mean Corpuscular Hemoglobin 33.5 pg (27.0-31.0); Mean Corpuscular Volume 99.5 fL (78.0-98.0); Mean Platelet Volume 7.2 fL (7.4-10.4); Platelet Count 170 thou/uL (130-400); RBC Distribution Width 12.4 % (11.5-14.5); White Blood Cell (WBC) Count 5.3 thou/uL (4.8-10.8)
[2022-04-12 05:35] LABS: Hemoglobin A1c 5.2 % (4.0-6.0)
[2022-04-12 05:37] LABS: ALT (SGPT) 16 U/L (8-55); AST (SGOT) 25 U/L (5-34); Albumin 3.5 g/dL (3.4-4.8); Alkaline Phosphatase 42 U/L (40-110); Anion Gap 12 mmol/L (10-20); BUN (Urea Nitrogen) 19 mg/dL (9.8-20.1); Bilirubin, Total 0.6 mg/dL (0.2-1.2); Calc. Creatinine Clearance 51 mL/min (70-130); Calcium 8.6 mg/dL (7.8-10.44); Carbon Dioxide 23 mmol/L (23-31); Cardiac Risk 2.4 (Less than 4.5); Chloride 107 mmol/L (98-107); Cholesterol 126 mg/dl (< 200 Desired); Estimated GFR 51; Globulin 2.4 g/dL (2.4-3.5); Glucose 104 mg/dL (83-110); HDL Cholesterol 53 mg/dL (>60 Neg Risk); LDL Cholesterol, Calculated 63 mg/dL; Protein, Total 5.9 g/dL (5.8-8.1); Sodium 138 mmol/L (136-145); Triglycerides 51 mg/dL (Less than 150)
[2022-04-12] MEDS: Apixaban 5 MG TAB PO SCH ×2 (08:28→21:15)
[2022-04-12] MEDS: ALPRAZolam 0.25 MG TAB PO SCH ×2 (08:28→21:14)
[2022-04-12] MEDS: Ezetimibe 10 MG TAB PO SCH (08:28)
[2022-04-12] MEDS: Metoprolol Tartrate 25 MG TAB PO SCH ×2 (08:28→21:15)
[2022-04-12] MEDS: Sodium Chloride 0.9% 1,000 ML IV SCH (08:29)
[2022-04-12] MEDS: Aspirin 81 mg Enteric Coated Tablet PO SCH (08:29)
[2022-04-12] MEDS ORDERED: Polyvinyl Alcohol 1.4%/Povidone 0.6% Opth Drops EA EYE PRN (14:09)
[2022-04-12] MEDS: Atorvastatin Calcium 40 MG TAB PO SCH (21:15)
[2022-04-12] MEDS: Fenofibrate Nanocrystallized 145 MG TAB PO SCH (21:15)
[2022-04-12] MEDS: Temazepam 15 MG CAP PO SCH (21:16)
[2022-04-13] MEDS: ALPRAZolam 0.25 MG TAB PO SCH ×2 (08:34→20:58)
[2022-04-13] MEDS: Aspirin 81 mg Enteric Coated Tablet PO SCH (08:34)
[2022-04-13] MEDS: Losartan 25 MG TAB PO SCH (08:34)
[2022-04-13] MEDS: Metoprolol Tartrate 25 MG TAB PO SCH ×2 (08:34→20:59)
[2022-04-13] MEDS: Apixaban 5 MG TAB PO SCH ×2 (08:34→20:58)
[2022-04-13] MEDS: Amlodipine 10 MG TAB PO SCH (08:35)
[2022-04-13] MEDS: Ezetimibe 10 MG TAB PO SCH (08:35)
[2022-04-13] MEDS: Atorvastatin Calcium 40 MG TAB PO SCH (20:58)
[2022-04-13] MEDS: Temazepam 15 MG CAP PO SCH (20:59)
[2022-04-13] MEDS: Fenofibrate Nanocrystallized 145 MG TAB PO SCH (20:59)
[2022-04-14] MEDS: Losartan 25 MG TAB PO SCH (09:08)
[2022-04-14] MEDS: Amlodipine 10 MG TAB PO SCH (09:08)
[2022-04-14] MEDS: Apixaban 5 MG TAB PO SCH ×2 (09:08→20:04)
[2022-04-14] MEDS: ALPRAZolam 0.25 MG TAB PO SCH ×2 (09:08→20:04)
[2022-04-14] MEDS: Ezetimibe 10 MG TAB PO SCH (09:08)
[2022-04-14] MEDS: Aspirin 81 mg Enteric Coated Tablet PO SCH (09:08)
[2022-04-14] MEDS: Metoprolol Tartrate 25 MG TAB PO SCH ×2 (09:08→20:04)
[2022-04-14] MEDS: Temazepam 15 MG CAP PO SCH (20:04)
[2022-04-14] MEDS: Fenofibrate Nanocrystallized 145 MG TAB PO SCH (20:05)
[2022-04-14] MEDS: Atorvastatin Calcium 40 MG TAB PO SCH (20:05)
[2022-04-15] MEDS: Apixaban 5 MG TAB PO SCH ×2 (09:43→21:12)
[2022-04-15] MEDS: Aspirin 81 mg Enteric Coated Tablet PO SCH (09:43)
[2022-04-15] MEDS: Amlodipine 10 MG TAB PO SCH (09:43)
[2022-04-15] MEDS: Ezetimibe 10 MG TAB PO SCH (09:43)
[2022-04-15] MEDS: Metoprolol Tartrate 25 MG TAB PO SCH ×2 (09:43→21:13)
[2022-04-15] MEDS: ALPRAZolam 0.25 MG TAB PO SCH ×2 (09:43→21:11)
[2022-04-15] MEDS: Losartan 25 MG TAB PO SCH (09:43)
[2022-04-15] MEDS: Escitalopram Oxalate 10 mg Tablet PO SCH (09:43)
[2022-04-15] MEDS: Temazepam 15 MG CAP PO SCH (21:11)
[2022-04-15] MEDS: Atorvastatin Calcium 40 MG TAB PO SCH (21:13)
[2022-04-15] MEDS: Fenofibrate Nanocrystallized 145 MG TAB PO SCH (21:13)
[2022-04-16] MEDS: Losartan 25 MG TAB PO SCH (09:08)
[2022-04-16] MEDS: Ezetimibe 10 MG TAB PO SCH (09:09)
[2022-04-16] MEDS: Metoprolol Tartrate 25 MG TAB PO SCH ×3 (09:09→21:20)
[2022-04-16] MEDS: Apixaban 5 MG TAB PO SCH ×2 (09:09→21:19)
[2022-04-16] MEDS: Aspirin 81 mg Enteric Coated Tablet PO SCH (09:09)
[2022-04-16] MEDS: Escitalopram Oxalate 10 mg Tablet PO SCH (09:09)
[2022-04-16] MEDS: ALPRAZolam 0.25 MG TAB PO SCH ×2 (09:09→21:19)
[2022-04-16] MEDS: Amlodipine 10 MG TAB PO SCH (09:09)
[2022-04-16] MEDS: Atorvastatin Calcium 40 MG TAB PO SCH (21:19)
[2022-04-16] MEDS: Fenofibrate Nanocrystallized 145 MG TAB PO SCH (21:20)
[2022-04-16] MEDS: Temazepam 15 MG CAP PO SCH (21:21)
[2022-04-17] MEDS: Escitalopram Oxalate 10 mg Tablet PO SCH (09:07)
[2022-04-17] MEDS: Amlodipine 10 MG TAB PO SCH (09:07)
[2022-04-17] MEDS: Losartan 25 MG TAB PO SCH (09:07)
[2022-04-17] MEDS: Apixaban 5 MG TAB PO SCH ×2 (09:08→20:23)
[2022-04-17] MEDS: Aspirin 81 mg Enteric Coated Tablet PO SCH (09:08)
[2022-04-17] MEDS: Metoprolol Tartrate 25 MG TAB PO SCH ×2 (09:08→20:23)
[2022-04-17] MEDS: Ezetimibe 10 MG TAB PO SCH (09:08)
[2022-04-17] MEDS: ALPRAZolam 0.25 MG TAB PO SCH ×2 (09:08→20:24)
[2022-04-17] MEDS: Temazepam 15 MG CAP PO SCH (20:22)
[2022-04-17] MEDS: Fenofibrate Nanocrystallized 145 MG TAB PO SCH (20:23)
[2022-04-17] MEDS: Atorvastatin Calcium 40 MG TAB PO SCH (20:23)
[2022-04-18] MEDS: ALPRAZolam 0.25 MG TAB PO SCH ×2 (09:28→20:41)
[2022-04-18] MEDS: Losartan 25 MG TAB PO SCH (09:28)
[2022-04-18] MEDS: Metoprolol Tartrate 25 MG TAB PO SCH ×2 (09:29→20:42)
[2022-04-18] MEDS: Amlodipine 10 MG TAB PO SCH (09:29)
[2022-04-18] MEDS: Aspirin 81 mg Enteric Coated Tablet PO SCH (09:29)
[2022-04-18] MEDS: Apixaban 5 MG TAB PO SCH ×2 (09:30→20:42)
[2022-04-18] MEDS: Escitalopram Oxalate 10 mg Tablet PO SCH (09:30)
[2022-04-18] MEDS: Ezetimibe 10 MG TAB PO SCH (09:30)
[2022-04-18] MEDS: Temazepam 15 MG CAP PO SCH (20:42)
[2022-04-18] MEDS: Atorvastatin Calcium 40 MG TAB PO SCH (20:42)
[2022-04-18] MEDS: Fenofibrate Nanocrystallized 145 MG TAB PO SCH (20:42)
[2022-04-19 08:04] VITALS: BP 113/71; TEMP 97.5
[2022-04-19] MEDS: Aspirin 81 mg Enteric Coated Tablet PO SCH (08:31)
[2022-04-19] MEDS: ALPRAZolam 0.25 MG TAB PO SCH (08:31)
[2022-04-19] MEDS: Amlodipine 10 MG TAB PO SCH (08:31)
[2022-04-19] MEDS: Escitalopram Oxalate 10 mg Tablet PO SCH (08:32)
[2022-04-19] MEDS: Losartan 25 MG TAB PO SCH (08:32)
[2022-04-19] MEDS: Ezetimibe 10 MG TAB PO SCH (08:32)
[2022-04-19] MEDS: Apixaban 5 MG TAB PO SCH (08:32)
[2022-04-19] MEDS: Metoprolol Tartrate 25 MG TAB PO SCH (08:32)
== END 2022-04-19 16:56 | DRG 896 ==
LOC: SUATTDRO 13:57 → ERS 13:57 → NEURO 18:00 → OBSVTOIN 04-12 14:10 → T4-A 04-12 20:44
PROVIDERS: ADMIT Internal Medicine; ATTEND Internal Medicine
DX: F13.239 Sedative, hypnotic or anxiolytic dependence with withdrawal, unspecified (principal); G92.8 Other toxic encephalopathy; N39.0 Urinary tract infection, site not specified; I50.32 Chronic diastolic (congestive) heart failure; I13.0 Hypertensive heart and chronic kidney disease with heart failure and stage 1 through stage 4 chronic kidney disease, or unspecified chronic kidney disease; N17.9 Acute kidney failure, unspecified; Z20.822 Contact with and (suspected) exposure to COVID-19; N18.9 Chronic kidney disease, unspecified; E78.2 Mixed hyperlipidemia; I48.0 Paroxysmal atrial fibrillation; I25.10 Atherosclerotic heart disease of native coronary artery without angina pectoris; F32.A Depression, unspecified; F41.9 Anxiety disorder, unspecified; M19.90 Unspecified osteoarthritis, unspecified site; T42.4X5A Adverse effect of benzodiazepines, initial encounter; Z88.0 Allergy status to penicillin; Z79.01 Long term (current) use of anticoagulants; Z88.5 Allergy status to narcotic agent; Z79.899 Other long term (current) drug therapy
CPT/HCPCS: 36415; 36416; 51701; 70450; 70551; 71045; 80053; 80061; 81003; 83036; 83605; 83690; 83735; 85025; 87040; 87086; 87811; 93005; 93306; 95712; 95819; 95957; 96365; J0696; J1956; J7050; U0003; U0005

== ENCOUNTER 2023-08-01 09:57 | Outpatient (CLI) | payer MEDICARE | END 2023-08-01 09:58 | disposition home or self-care (01) | LOC: BICRAD 09:57 | PROVIDERS: ATTEND Radiology Diagnostic Neuroimaging | DX: Z01.818 Encounter for other preprocedural examination (principal); Z95.0 Presence of cardiac pacemaker; I51.7 Cardiomegaly | CPT/HCPCS: 71045 ==

== ENCOUNTER 2023-08-06 12:28 | Outpatient (CLI) | payer MEDICARE ==
[~2023-08-06 12:28] MED LIST changes: -Iopamidol-370 76% 500 ML 1 ML ONE; +Magnevist 469MG/ML 20 ML VIAL ONE
== END 2023-08-06 12:29 | disposition home or self-care (01) ==
LOC: MRI 12:28
PROVIDERS: ATTEND Nurse Practitioner Family
DX: H90.8 Mixed conductive and sensorineural hearing loss, unspecified (principal); I50.22 Chronic systolic (congestive) heart failure; H93.13 Tinnitus, bilateral; F41.9 Anxiety disorder, unspecified; Z95.0 Presence of cardiac pacemaker; I67.82 Cerebral ischemia; Z79.899 Other long term (current) drug therapy
CPT/HCPCS: 70553; 93880; A9579

== ENCOUNTER 2024-07-13 13:02 | Outpatient (CLI) | payer MEDICARE | END 2024-07-13 13:03 | disposition home or self-care (01) | LOC: ULT 13:02 | PROVIDERS: ATTEND Nurse Practitioner Family | DX: R31.9 Hematuria, unspecified (principal) | CPT/HCPCS: 76770 ==

== ENCOUNTER 2025-04-08 16:38 | Inpatient (IN) | payer MEDICARE ==
[2025-04-08 17:17] LABS: Bacteria/HPF 4+ HPF (None Seen); CAUTI Indications for Culture Acute Hematuria; Glucose, Urine (Dipstick) Normal (Negative); Leukocyte 500 Leu/uL (Negative); Protein, Urine (Dipstick) 70 mg/dL (Neg-Trace); RBC/HPF Greater than 50 HPF (0-3); Specific Gravity, Urine 1.013 (1.002-1.036); WBC/HPF Greater than 50 HPF (0-3)
[2025-04-08 17:20] LABS: Urine Culture Reflex Yes Yes
[2025-04-08 17:29] LABS: #Basophils 0.04 10x3/uL (0.0-0.2); #Eosinophils 0.22 10x3/uL (0.0-0.7); #Monocytes 0.63 10x3/uL (0.11-0.59); #Neutrophils 9.07 10x3/uL (1.40-6.50); %Basophils 0.4 % (0.0-1.0); %Eosinophils 2.1 % (0.0-10.0); %Lymphocytes 5.5 % (21.0-51.0); %Monocytes 5.9 % (0.0-10.0); %Neutrophils 85.2 % (42.0-75.0); Hematocrit 29.5 % (36.0-47.0); Hemoglobin 9.4 g/dL (12.0-16.0); Mean Corpuscular Hemoglobin 30.6 pg (27.0-31.0); Mean Corpuscular Volume 96.1 fL (78.0-98.0); Platelet Count 337 10x3/uL (130-400); Red Blood Cell (RBC) Count 3.07 mill/uL (4.20-5.40); White Blood Cell (WBC) Count 10.64 10x3/uL (4.8-10.8)
[2025-04-08 17:57] LABS: ALT (SGPT) 17 U/L (Less than 34); AST (SGOT) 38 U/L (11-34); Albumin 3.0 g/dL (3.1-4.5); Alkaline Phosphatase 42 U/L (40-110); Anion Gap 15 mmol/L (10-20); BUN (Urea Nitrogen) 68 mg/dL (9.8-20.1); Bilirubin, Total 0.3 mg/dL (0.3-1.2); Calc. Creatinine Clearance 0 mL/min (70-130); Calcium 8.9 mg/dL (7.8-10.44); Carbon Dioxide 15 mmol/L (23-31); Chloride 107 mmol/L (98-107); Globulin 3.7 g/dL (2.4-3.5); Glucose 107 mg/dL (83-110); Potassium 6.6 mmol/L (3.5-5.1); Sodium 130 mmol/L (136-145)
[2025-04-08] MEDS ORDERED: Albuterol 2.5 MG (3 mL) NEB ONE (18:17)
[2025-04-08] MEDS ORDERED: CALCIUM GLUC 1 GM/NS 50 ML IV Bag ONE (18:18)
[2025-04-08] MEDS ORDERED: Dextrose 50% Abboject 50 ML SYRINGE ONE (18:18)
[2025-04-08] MEDS ORDERED: LevoFLOXacin 750 mg/D5W 150 ml Premix Bag ONE (20:35)
[2025-04-08] MEDS ORDERED: Ondansetron PF 4 MG/2 ML Vial IVP PRN (21:07)
[2025-04-08 21:53] LABS: Anion Gap 21 mmol/L (10-20); BUN (Urea Nitrogen) 69 mg/dL (9.8-20.1); Calc. Creatinine Clearance 0 mL/min (70-130); Calcium 9.2 mg/dL (7.8-10.44); Carbon Dioxide 11 mmol/L (23-31); Chloride 103 mmol/L (98-107); Glucose 95 mg/dL (83-110); Potassium 5.9 mmol/L (3.5-5.1); Sodium 129 mmol/L (136-145)
[2025-04-08] MEDS ORDERED: Dextrose 50% Abboject 50 ML SYRINGE SLOW IVP SCH (22:00)
[2025-04-08] MEDS ORDERED: hydrALAZINE 10 MG TAB PO PRN (22:05)
[2025-04-08] MEDS ORDERED: Sodium Bicarb 50 MEQ/50 ML Abboject 8.4% SYRINGE ONE (22:07)
[2025-04-08] MEDS: Sodium Bicarb 50 MEQ/50 ML Abboject 8.4% SYRINGE IVP SCH (23:23)
[2025-04-08] MEDS: LOKELMA 10 GM PACKET PO SCH (23:23)
[2025-04-08] MEDS: Acetaminophen 325 MG TAB PO PRN (23:32)
[2025-04-09 00:18] LABS: Potassium 5.2 mmol/L (3.5-5.1)
[2025-04-09 02:02] LABS: Potassium 5.0 mmol/L (3.5-5.1)
[2025-04-09 04:20] LABS: #Basophils 0.04 10x3/uL (0.0-0.2); #Eosinophils 0.19 10x3/uL (0.0-0.7); #Monocytes 0.56 10x3/uL (0.11-0.59); #Neutrophils 4.93 10x3/uL (1.40-6.50); %Basophils 0.6 % (0.0-1.0); %Eosinophils 3.0 % (0.0-10.0); %Lymphocytes 7.8 % (21.0-51.0); %Monocytes 8.9 % (0.0-10.0); %Neutrophils 78.1 % (42.0-75.0); Hematocrit 27.0 % (36.0-47.0); Hemoglobin 8.8 g/dL (12.0-16.0); Mean Corpuscular Hemoglobin 30.6 pg (27.0-31.0); Mean Corpuscular Volume 93.8 fL (78.0-98.0); Platelet Count 265 10x3/uL (130-400); Red Blood Cell (RBC) Count 2.88 mill/uL (4.20-5.40); White Blood Cell (WBC) Count 6.31 10x3/uL (4.8-10.8)
[2025-04-09 04:55] LABS: ALT (SGPT) 14 U/L (Less than 34); AST (SGOT) 31 U/L (11-34); Albumin 2.7 g/dL (3.1-4.5); Alkaline Phosphatase 35 U/L (40-110); Anion Gap 13 mmol/L (10-20); BUN (Urea Nitrogen) 66 mg/dL (9.8-20.1); Bilirubin, Total 0.4 mg/dL (0.3-1.2); Calc. Creatinine Clearance 12 mL/min (70-130); Calcium 8.6 mg/dL (7.8-10.44); Carbon Dioxide 23 mmol/L (23-31); Chloride 106 mmol/L (98-107); Globulin 2.9 g/dL (2.4-3.5); Glucose 102 mg/dL (83-110); Potassium 5.2 mmol/L (3.5-5.1); Sodium 137 mmol/L (136-145)
[2025-04-09 07:36] VITALS: BMI 28.5
[2025-04-09] MEDS: LOKELMA 10 GM PACKET PO SCH (08:16)
[2025-04-09 09:38] LABS: Anion Gap 15 mmol/L (10-20); BUN (Urea Nitrogen) 60 mg/dL (9.8-20.1); Calc. Creatinine Clearance 14 mL/min (70-130); Calcium 8.6 mg/dL (7.8-10.44); Carbon Dioxide 22 mmol/L (23-31); Chloride 103 mmol/L (98-107); Glucose 113 mg/dL (83-110); Potassium 4.9 mmol/L (3.5-5.1); Sodium 135 mmol/L (136-145)
[2025-04-09] MEDS: Enoxaparin 80 MG (0.8 mL) SYRINGE SC SCH (12:39)
[2025-04-09] MEDS: Sodium Bicarbonate Tab 325 MG TAB PO SCH (16:20)
[2025-04-09] MEDS: Cyanocobalamin (Vitamin B-12) 1,000 MCG TAB PO SCH (20:08)
[2025-04-09] MEDS: Cholecalciferol 1,000 UNITS (25 MCG) TAB PO SCH (20:08)
[2025-04-09] MEDS: Senokot S 8.6-50 MG TAB PO SCH (20:10)
[2025-04-10 05:03] LABS: Anion Gap 11 mmol/L (10-20); BUN (Urea Nitrogen) 54 mg/dL (9.8-20.1); Calc. Creatinine Clearance 14 mL/min (70-130); Calcium 8.3 mg/dL (7.8-10.44); Carbon Dioxide 24 mmol/L (23-31); Chloride 106 mmol/L (98-107); Glucose 101 mg/dL (83-110); Iron 35 ug/dL (50-170); Iron Binding Capacity, Total 329 mcg/dL (265-497); Potassium 4.4 mmol/L (3.5-5.1); Sodium 137 mmol/L (136-145)
[2025-04-10 05:46] LABS: #Basophils 0.03 10x3/uL (0.0-0.2); #Eosinophils 0.33 10x3/uL (0.0-0.7); #Monocytes 0.63 10x3/uL (0.11-0.59); #Neutrophils 3.50 10x3/uL (1.40-6.50); %Basophils 0.6 % (0.0-1.0); %Eosinophils 6.3 % (0.0-10.0); %Lymphocytes 13.5 % (21.0-51.0); %Monocytes 12.0 % (0.0-10.0); %Neutrophils 66.3 % (42.0-75.0); Hematocrit 26.0 % (36.0-47.0); Hemoglobin 8.4 g/dL (12.0-16.0); Mean Corpuscular Hemoglobin 30.2 pg (27.0-31.0); Mean Corpuscular Volume 93.5 fL (78.0-98.0); Platelet Count 284 10x3/uL (130-400); Red Blood Cell (RBC) Count 2.78 mill/uL (4.20-5.40); White Blood Cell (WBC) Count 5.27 10x3/uL (4.8-10.8)
[2025-04-10] MEDS: Enoxaparin 80 MG (0.8 mL) SYRINGE SC SCH (07:58)
[2025-04-10] MEDS: EPOETIN ALFA-EPBX (ESRD) 10,000 UNITS/ML VIAL SC SCH (12:04)
[2025-04-10 12:54] LABS: Anion Gap 13 mmol/L (10-20); BUN (Urea Nitrogen) 48 mg/dL (9.8-20.1); Calc. Creatinine Clearance 17 mL/min (70-130); Calcium 8.6 mg/dL (7.8-10.44); Carbon Dioxide 24 mmol/L (23-31); Chloride 107 mmol/L (98-107); Glucose 92 mg/dL (83-110); Potassium 4.4 mmol/L (3.5-5.1); Sodium 140 mmol/L (136-145)
[2025-04-10] MEDS: Senokot S 8.6-50 MG TAB PO SCH (20:52)
[2025-04-11 04:22] LABS: #Basophils 0.04 10x3/uL (0.0-0.2); #Eosinophils 0.25 10x3/uL (0.0-0.7); #Monocytes 0.59 10x3/uL (0.11-0.59); #Neutrophils 4.07 10x3/uL (1.40-6.50); %Basophils 0.7 % (0.0-1.0); %Eosinophils 4.3 % (0.0-10.0); %Lymphocytes 12.7 % (21.0-51.0); %Monocytes 10.2 % (0.0-10.0); %Neutrophils 70.7 % (42.0-75.0); Hematocrit 28.3 % (36.0-47.0); Hemoglobin 9.0 g/dL (12.0-16.0); Mean Corpuscular Hemoglobin 30.0 pg (27.0-31.0); Mean Corpuscular Volume 94.3 fL (78.0-98.0); Platelet Count 286 10x3/uL (130-400); Red Blood Cell (RBC) Count 3.00 mill/uL (4.20-5.40); White Blood Cell (WBC) Count 5.76 10x3/uL (4.8-10.8)
[2025-04-11 05:09] LABS: Anion Gap 12 mmol/L (10-20); BUN (Urea Nitrogen) 43 mg/dL (9.8-20.1); Calc. Creatinine Clearance 18 mL/min (70-130); Calcium 8.4 mg/dL (7.8-10.44); Carbon Dioxide 24 mmol/L (23-31); Chloride 107 mmol/L (98-107); Glucose 99 mg/dL (83-110); Potassium 4.3 mmol/L (3.5-5.1); Sodium 139 mmol/L (136-145)
[2025-04-11] MEDS: Senokot S 8.6-50 MG TAB PO SCH (20:30)
[2025-04-12 04:08] LABS: #Basophils 0.05 10x3/uL (0.0-0.2); #Eosinophils 0.31 10x3/uL (0.0-0.7); #Monocytes 0.75 10x3/uL (0.11-0.59); #Neutrophils 5.53 10x3/uL (1.40-6.50); %Basophils 0.7 % (0.0-1.0); %Eosinophils 4.1 % (0.0-10.0); %Lymphocytes 11.8 % (21.0-51.0); %Monocytes 9.8 % (0.0-10.0); %Neutrophils 72.2 % (42.0-75.0); Hematocrit 30.3 % (36.0-47.0); Hemoglobin 9.4 g/dL (12.0-16.0); Mean Corpuscular Hemoglobin 30.0 pg (27.0-31.0); Mean Corpuscular Volume 96.8 fL (78.0-98.0); Platelet Count 273 10x3/uL (130-400); Red Blood Cell (RBC) Count 3.13 mill/uL (4.20-5.40); White Blood Cell (WBC) Count 7.65 10x3/uL (4.8-10.8)
[2025-04-12 04:26] LABS: Anion Gap 13 mmol/L (10-20); BUN (Urea Nitrogen) 35 mg/dL (9.8-20.1); Calc. Creatinine Clearance 25 mL/min (70-130); Calcium 8.5 mg/dL (7.8-10.44); Carbon Dioxide 21 mmol/L (23-31); Chloride 109 mmol/L (98-107); Glucose 100 mg/dL (83-110); Potassium 4.0 mmol/L (3.5-5.1); Sodium 139 mmol/L (136-145)
[2025-04-12] MEDS: Carvedilol 6.25 MG TAB PO SCH ×2 (11:39→16:36)
[2025-04-13 04:00] LABS: #Basophils 0.04 10x3/uL (0.0-0.2); #Eosinophils 0.26 10x3/uL (0.0-0.7); #Monocytes 0.77 10x3/uL (0.11-0.59); #Neutrophils 5.03 10x3/uL (1.40-6.50); %Basophils 0.6 % (0.0-1.0); %Eosinophils 3.7 % (0.0-10.0); %Lymphocytes 12.2 % (21.0-51.0); %Monocytes 10.9 % (0.0-10.0); %Neutrophils 71.3 % (42.0-75.0); Hematocrit 28.1 % (36.0-47.0); Hemoglobin 8.7 g/dL (12.0-16.0); Mean Corpuscular Hemoglobin 30.2 pg (27.0-31.0); Mean Corpuscular Volume 97.6 fL (78.0-98.0); Platelet Count 251 10x3/uL (130-400); Red Blood Cell (RBC) Count 2.88 mill/uL (4.20-5.40); White Blood Cell (WBC) Count 7.05 10x3/uL (4.8-10.8)
[2025-04-13 04:13] LABS: Anion Gap 15 mmol/L (10-20); BUN (Urea Nitrogen) 30 mg/dL (9.8-20.1); Calc. Creatinine Clearance 29 mL/min (70-130); Calcium 8.4 mg/dL (7.8-10.44); Carbon Dioxide 21 mmol/L (23-31); Chloride 108 mmol/L (98-107); Glucose 102 mg/dL (83-110); Potassium 3.9 mmol/L (3.5-5.1); Sodium 140 mmol/L (136-145)
[2025-04-13 12:46] VITALS: TEMP 98.1
[2025-04-13 17:03] VITALS: BP 156/91
[2025-04-14] MEDS ORDERED: Apixaban 2.5 MG TAB PO SCH (09:00)
== END 2025-04-13 17:30 | DRG 689 ==
LOC: ERS 16:38 → PCU 21:13
PROVIDERS: ADMIT Internal Medicine; ATTEND Internal Medicine
DX: N39.0 Urinary tract infection, site not specified (principal); G93.41 Metabolic encephalopathy; N17.9 Acute kidney failure, unspecified; I13.0 Hypertensive heart and chronic kidney disease with heart failure and stage 1 through stage 4 chronic kidney disease, or unspecified chronic kidney disease; I50.32 Chronic diastolic (congestive) heart failure; E87.20 Acidosis, unspecified; F33.8 Other recurrent depressive disorders; E87.1 Hypo-osmolality and hyponatremia; N25.81 Secondary hyperparathyroidism of renal origin; E78.5 Hyperlipidemia, unspecified; I48.91 Unspecified atrial fibrillation; G47.00 Insomnia, unspecified; Z88.0 Allergy status to penicillin; Z88.8 Allergy status to other drugs, medicaments and biological substances; R31.9 Hematuria, unspecified; N18.30 Chronic kidney disease, stage 3 unspecified; Z98.890 Other specified postprocedural states; D64.9 Anemia, unspecified; E87.5 Hyperkalemia; M19.90 Unspecified osteoarthritis, unspecified site; K80.20 Calculus of gallbladder without cholecystitis without obstruction; W19.XXXA Unspecified fall, initial encounter; E83.39 Other disorders of phosphorus metabolism; B96.1 Klebsiella pneumoniae [K. pneumoniae] as the cause of diseases classified elsewhere; Z79.899 Other long term (current) drug therapy
CPT/HCPCS: 36415; 36416; 70450; 71045; 72125; 74176; 76705; 78226; 80048; 80053; 81001; 82306; 82728; 83540; 83550; 83605; 83970; 84100; 84484; 85025; 85046; 87040; 87086; 93005; 96374; 96375; A9537; J0613; J0692; J1650; J1815; J1956; J7030; J7070; J7611; J7999; Q5105